=== PATIENT | male | born 1965 | race African-American/Black ===

== ENCOUNTER 2022-02-02 07:45 | Emergency (ER) | payer BC, OTHER ==
[2022-02-02] MEDS ORDERED: HYDROmorphone 0.5 MG/0.5 ML Syringe IVPUSH ONE (09:08)
[2022-02-02] MEDS ORDERED: Metoclopramide 10 MG/2 ML SDV IVPUSH ONE (09:08)
[2022-02-02] MEDS ORDERED: Dextrose 5%-0.9% NaCl 1,000 ML IV SCH (09:15)
== END 2022-02-02 12:20 | disposition home or self-care (01) ==
LOC: EDBD 07:45 → JD.ED 07:45
DX: K59.01 Slow transit constipation (principal); J40 Bronchitis, not specified as acute or chronic
CPT/HCPCS: 36415; 71045; 74018; 80053; 81001; 83690; 85025; 86140; 96361; 96374; 96375; 99284; J1170; J2765; J7042